=== PATIENT | female | born 1960 | race Two or more races ===

== ENCOUNTER 2024-06-11 09:44 | Outpatient (AMB) | payer BC, SELFPAY ==
--- NOTE | 2024-06-11 10:19 | PD.ORTHCLVIS ---
Vital signs 06/11/24 10:20 Height 1.52 m Height Method Stated Weight 98.685 kg Weight Measurement Method Standing Scale BMI 42.5 BP 118/72 Blood Pressure Source Automatic Cuff Blood Pressure Location Right Upper Arm Position Sitting Respiration 16 Pulse 86 Pulse Source Monitor Temp 97.8 F Temp Source Temporal Artery Scan Pulse Oximetry (%) 96 Oxygen Delivery Method Room Air Med/Allergies Allergies & Medications Allergies No Known Allergies Allergy (Verified 06/11/24 10:21) Medication Reconciliation gabapentin 100 mg capsule 100 mg PO QDAY 06/11/24 [History Confirmed 06/11/24] levothyroxine 100 mcg capsule 100 mcg PO QDAY 06/11/24 [History Confirmed 06/11/24] lisinopril 10 mg-hydrochlorothiazide 12.5 mg tablet 1 tab PO BID 06/11/24 [History Confirmed 06/11/24] Exam Exam Patient is in no acute distress and is cooperative with the examination today. Breathing is nonlabored. In no respiratory distress. Bilateral extremities were evaluated and demonstrates sensation intact to light touch. Palpable pedal pulses are present. No significant edema is present. Bilateral hips were examined. The patient has no pain with log roll of the hips. Internal rotation to 30 degrees and external rotation to 30 degrees is painless. Negative FADIR. The left knee was examined. The left knee is in varus alignment. Range of motion from 0-115 degrees. Knee is stable to varus and valgus as well as AP translation with <5mm. Patient has a negative McMurrays. There is no pain with patellofemoral compression and no crepitus noted. The knee is tender to palpation medially. The right knee was also examined. The right knee is in varus alignment. Range of motion from 0-120 degrees. Knee is stable to varus and valgus as well as AP translation with <5mm. Patient has a negative McMurrays. There is no pain with patellofemoral compression and no crepitus noted. The knee is tender to palpation medially. xrays demonstrate complete joint space obliteration medially Assessment and Plan Problem List (1) Bilateral primary osteoarthritis of knee: Status: Acute Plan: Patient is a 63yo female with bilateral knee pain and bilateral knee osteoarthritis. See history of conservative treatment. We discussed the weight loss is needed as her BMI is currently over 40. We would like for her to get more optimized before proceeding with surgery possible. However, she is failed conservative treatment. We will do bilateral knee injections today she should continue to try to lose weight. She is supposed to start zepbound soon. Recommend knee cortisone injections as patient would like to proceed with conservative treatment at this time. The risks and benefits of the procedure were reviewed with the patient and patient gave verbal consent to continue with the procedure. Procedure: performed by Dr. Coker Using sterile technique the Bilateral knees were thoroughly prepped with alcohol, and approximately 1 cc of Kenalog 40 mg/mL and 4 cc of 1% lidocaine was injected into each knee without resistance into the medial tibial femoral joint space. The patient tolerated the procedure. Office Procedures GNS Level of Care Nursing/Assessment Patient Status: Initial/New Patient Nursing Assessment/Reassesment: Medication Reconciliation and Update PMH in EMR Coordination of Care: Complex Care and Chronic Disease 1-5, Consent,records obtained, informed consent, Education Simp Pt/Fam, 1 Ins Authorization, Lab and Imaging orders, Results/Orders obtained and Staff clarify orders Special Needs: Language special needs ([place] ) New Patient Charge New Patient Point Assignment: 1104 New Patient Point Charge: BUSINESS INTELLIGENCE ADMINISTRATOR Level 3 (4518-2105) Surgical Proc/IM SQ injection Major Surgical Procedure: Yes (BILATERAL KNEE INJECTION) Medication Given Medication Given Medication Given: Yes Documented Dose Given: 8 Route: Infiitration Medication Given Medication Given Medication Given: Yes Documented Dose Given: 2 Route: Infiitration Office Meds Xylocaine 10 mg/mL (1 %) injection solution Performing Provider: Shar Coker MD Performing Location: [facility] Administered by: Shar Coker MD on 06/11/24 11:34 Dose Route Admin Location Dispensed Lot Number Expiration Date [facility] Document Clerk 40 mL Infiltration 40 mL [id number] 09/07/27 92437-020-72 [facility] triamcinolone acetonide 40 mg/mL suspension for injection Performing Provider: Shar Coker MD Performing Location: [facility] Administered by: Shar Coker MD on 06/11/24 11:34 Dose Route Admin Location Dispensed Lot Number Expiration Date [facility] Document Clerk 80 mg intra-articular 2 mL [id number] 08/06/25 7247-1252-40 TEVA PARENTERAL MA Intake Visit Data Collection New Patient or Established: New Patient (never been to [facility]) Reason for Visit:: bilat knee pain Seen by Clinical Staff ONLY (RN/MA): No Documentation Billing Clerk Required: Yes PCP or OBGYN visit in last 3 months: Yes Hx Now: No Do You Feel Safe at Home: Yes Authorities Contacted: N/A Questionairres Past Medical History Past Medical History Have you ever been diagnosed with any of the following: Respiratory Problems Smoking: No Smoking Cessation Counseling: No Smoking Exposure: No Subjective Visit Visit for: new patient and knee (bilateral knee ) Immunization / Flu Flu Vaccine in the Last 12 Months: No Flu Vaccine Exclusion Criteria: Refused by Patient History of Present Illness Chief complaint: bilateral knee pain Patient is a 63yo female with bilateral knee pain. Patient has had injections of both knees in the past. She has had 3 injections into each knee demonstrate physical therapy and anti-inflammatories. The pain is affecting her quality life and happiness Pain Pain level (0-10): 10 Pain duration: 3 years Pain location: anterior Pain quality: sharp and aching Pain timing: increases with activity Associated signs & symptoms: stiffness Ambulatory data Ambulatory device: none Walking distance (minutes): 5 Treatments Number of previous injections: 3 Improvement with previous injections: No Number of Physical Therapy sessions: 10 Improvement with PT: No Improvement with NSAIDS: n/a Review of Systems Review of Systems: All systems negative unless otherwise noted in HPI.
[2024-06-11 10:20] VITALS: BP 118/72; PULSE 86; RESP 16; TEMP 36.6; O2SAT 96; BMI 42.5
== END 2024-06-11 11:01 | disposition home or self-care (01) ==
PROVIDERS: PCP Family Medicine; Referring Provider Family Medicine; Supervising Provider Orthopaedic Surgery Adult Reconstructive Orthopaedic Surgery; Visit Provider Orthopaedic Surgery Adult Reconstructive Orthopaedic Surgery
DX: M17.0 Bilateral primary osteoarthritis of knee (principal); M25.562 Pain in left knee; M25.561 Pain in right knee
CPT/HCPCS: 20610; 99203; J3301; J3490; G0463